=== PATIENT | male | born 1950 | race Caucasian/White ===

== ENCOUNTER → 2022-06-07 | Emergency (ER) | payer MEDICARE, OTHER ==
[~2022-06-07] VITALS: Ht 177.8 cm; Wt 97.7 kg
[2022-06-07 00:27] VITALS: BP 147/97
== END | disposition home or self-care (01) ==
LOC: ER 00:27
DX: S39.012A Strain of muscle, fascia and tendon of lower back, initial encounter (principal); S80.12XA Contusion of left lower leg, initial encounter; I10 Essential (primary) hypertension; E11.9 Type 2 diabetes mellitus without complications; E78.5 Hyperlipidemia, unspecified; Z95.1 Presence of aortocoronary bypass graft; V43.62XA Car passenger injured in collision with other type car in traffic accident, initial encounter; Y93.89 Activity, other specified; Y92.410 Unspecified street and highway as the place of occurrence of the external cause; Y99.8 Other external cause status
CPT/HCPCS: 70450; 72131; 93971

== ENCOUNTER 2022-11-09 01:58 | Emergency (ER) | payer MEDICARE ==
[~2022-11-09] VITALS: Ht 177.8 cm; Wt 93.6 kg
[2022-11-09] MEDS ORDERED: LIDOCAINE VISCOUS 2% 15ML UD MT ONE (03:30)
[2022-11-09 03:42] LABS: Urine Bacteria NONE SEEN /hpf (None Seen); Urine Blood 3+ /uL (Negative); Urine Budding Yeast MANY /hpf (None Seen); Urine Mucus FEW (None Seen); Urine WBC 1131 /hpf (0 - 3); Urine WBC Clumps PRESENT /hpf (None Seen)
[2022-11-09] MEDS ORDERED: SULF400T11 PO (03:56)
[2022-11-09 04:00] VITALS: BP 122/99
== END 2022-11-09 04:11 | disposition home or self-care (01) ==
LOC: ER 01:58
DX: N39.0 Urinary tract infection, site not specified (principal); E11.9 Type 2 diabetes mellitus without complications; I10 Essential (primary) hypertension; Z95.1 Presence of aortocoronary bypass graft
CPT/HCPCS: 51702; 81001